=== PATIENT | male | born 1950 | race Caucasian/White ===

== ENCOUNTER 2017-08-24 05:28 | Day surgery (SDC) | payer OTHER, MEDICARE ==
[~2017-08-24] VITALS: Ht 188 cm; Wt 129.7 kg
--- NOTE | ~2017-08-24 | O ---
[facility] [place] [address] OPERATIVE REPORT Name: JONYPEDROLACEYCOLTON COLVIN Room #: DEP [facility] [place] M..#: [id number] Admission: 08/24/17 Attend Phys: Annamarie Aguirre, Discharge: 08/24/17 Date of : 52 Report #: [id number] THIS REPORT FOR: //name// CC: Annamarie Campos DATE OF SERVICE: 08/24/2017 PREOPERATIVE DIAGNOSIS: Right carpal tunnel syndrome. POSTOPERATIVE DIAGNOSIS: Right carpal tunnel syndrome. PROCEDURE PERFORMED: Right open carpal tunnel release. SURGEON: Annamarie Aguirre M.D. ANESTHESIA: Local MAC anesthesia. ESTIMATED BLOOD LOSS: Minimal. TOURNIQUET TIME: 13 minutes. COMPLICATIONS: None. CONDITION: Stable. DISPOSITION: Recovery room. INDICATIONS: The patient is a 67-year-old male with the above-mentioned diagnosis. He elects for operative treatment. The risks, benefits, alternatives, complications were discussed and included but were not limited to infection, damage to vessels or nerves, incomplete relief of his symptoms. Informed consent was obtained. The correct extremity was identified and labeled by myself after verbal confirmation of patient as well as visual confirmation and signed informed consent. DESCRIPTION OF PROCEDURE: The patient brought to the operating room and placed on the operating table in supine position. He received preoperative antibiotics. Tourniquet was placed over padding. The patient's right upper extremity was sterilely prepped and draped in the usual fashion. A final timeout was taken to verify correct patient, operative procedure, operative site, all concurred. After adequate sedation was achieved, a total of approximately 6 mL of a mixed 0.25% Marcaine, 1% lidocaine was injected into the subcutaneous tissue at the proposed incision sites. The entire procedures were done with the aid of 3.5 times loupe magnification. After adequate anesthesia was obtained, the arm was elevated, exsanguinated and tourniquet inflated. [address] [address] OPERATIVE REPORT Name: COLTON VILLANUEVA Room #: DEP [facility]..#: [id number] Admission: 08/24/17 Attend Phys: Annamarie Aguirre, Discharge: 08/24/17 Date of : 52 Report #: [id number] Next, a 2.5 cm was made over the carpal tunnel in line with the ring and long finger web space. Dissection was tissue with tenotomy scissors in the mid portion of the incision, a 15 blade was utilized to incise the transverse carpal ligament and the mid portion and is very thick. The tenotomy scissors were used to transect the transverse carpal ligament proximally from the antebrachial fascia in the palm all the way to the fat in the palm. The incision was ulnar to the course of median nerve to decrease postoperative scarring. The nerve was evaluated and looked to be in good condition. The wound was thoroughly irrigated. Skin was closed with 4-0 nylon suture. Wound was dressed with Adaptic and sterile gauze. He was placed in a bulky mildly compressive dressing. All fingers were pink with brisk capillary refill of the case after deflation of the tourniquet. All sponge, needle counts were correct. The patient transferred to postoperative position in stable condition. <ELECTRONICALLY SIGNED> By: Annamarie Aguirre MD 09/07/17 1526 1729 1810 Annamarie Aguirre MD /nt
[~2017-08-24 05:28] MED LIST: ADVAIR HFA 45MC1 AER INH; ALLEGRA ALLERGY60 MG PO; AMLODIPINE-ATO1 EAC5 PO; ASPIR 8181 MG PO; BENICAR40 MG PO; CARDIZEM CD240 MG PO; CARDURA4 MG PO; CARVEDILOL25 MG PO; CELEBREX 200 M200 M1 PO; DEMADEX20 MG PO; EMLA CREAM5 GM TOP; FOSRENOL1000 MG PO; HYDROXYZINE HCL25 M1 PO; JANUVIA100 MG PO; JANUVIA25 MG PO; LANTUSSOLASTAR SUBQ; LIPITOR 20 MG T20 M1 PO; LOVENOX40 MG/0.4 SUBQ; METAXALONE800 MG PO; NABUMETONE 750750 M1 PO; NEURONTIN100 MG PO; PACERONE 200 M200 M1 PO; PERCOCET 10-321 EACH PO; RENAL CAPS SOFTG1 MG PO; SINGULAIR 10 MG10 M1 PO; SYMBICORT80 MCG/4.1 INH; TRAMADOL 50 MG50 MG PO; VASCEPA1 GM PO; XANAX1 MG PO; ZETIA10 MG PO
[2017-08-24 11:49] LABS: CALCIUM 8.6 mg/dL (8.5-10.1); CREATININE 6.4 mg/dL (0.7-1.3); POTASSIUM 4.9 mmol/L (3.5-5.1)
[2017-08-24 11:53] LABS: ALBUMIN 3.4 g/dL (3.4-5.0); TOTAL BILIRUBIN 0.5 mg/dL (<0.1-1.0); TOTAL PROTEIN 6.9 g/dL (6.4-8.2)
[2017-08-24 13:30] VITALS: BP 210/82
[2017-08-24 15:07] VITALS: BP 210/82
== END 2017-08-24 15:55 | disposition home or self-care (01) ==
LOC: TBA 05:28 → OR 05:28
PROVIDERS: Orthopaedic Surgery Hand Surgery
DX: G56.01 Carpal tunnel syndrome, right upper limb (principal); F41.9 Anxiety disorder, unspecified; I12.0 Hypertensive chronic kidney disease with stage 5 chronic kidney disease or end stage renal disease; E11.22 Type 2 diabetes mellitus with diabetic chronic kidney disease; N18.6 End stage renal disease; Z99.2 Dependence on renal dialysis; M19.90 Unspecified osteoarthritis, unspecified site; J45.909 Unspecified asthma, uncomplicated; E78.5 Hyperlipidemia, unspecified
CPT/HCPCS: 50010; 50101; 50386; 56526; 57006; 57091; 62110; 62850; 70005

== ENCOUNTER → 2019-08-20 | Outpatient (CLI) | payer OTHER, MEDICARE ==
[~2019-08-20] MED LIST changes: +BUPROPION XL300 MG PO; +CALCIUM CARBON500 MG PO; +INSULIN AS100 UNIT/3 SUBQ; +MYFORTIC360 MG PO; +NIFEDIPINE ER90 M1 PO; +NORVASC5 M1 PO; +PREDNISONE 5 MG5 M1 PO; +PROGRAF 1 MG1 MG PO; +PROTONIX40 M4 PO; +SPIRONOLACTONE25 MG PO; +TORSEMIDE20 MG PO; +TRESIBA FL100 UNIT/1 SUBQ
== END | disposition home or self-care (01) ==
LOC: SJCVCIMAG 11:34
DX: I11.9 Hypertensive heart disease without heart failure (principal); I25.10 Atherosclerotic heart disease of native coronary artery without angina pectoris; E11.9 Type 2 diabetes mellitus without complications; G47.33 Obstructive sleep apnea (adult) (pediatric); E78.5 Hyperlipidemia, unspecified; Z99.89 Dependence on other enabling machines and devices; Z79.4 Long term (current) use of insulin; Z94.0 Kidney transplant status

== ENCOUNTER → 2019-08-26 | Outpatient (CLI) | payer OTHER, MEDICARE ==
[~2019-08-26] VITALS: Ht 188 cm; Wt 139.0 kg
[2019-08-26 07:29] VITALS: BP 156/63
[2019-08-26 07:30] LABS: HEMATOCRIT 42.5 % (42.0-52.0); HEMOGLOBIN 13.6 gm/dL (14.0-18.0); MCH 30.1 pg (26.0-34.0); MCV 94.3 fL (80.0-100.0); RBC 4.51 mil/uL (4.50-6.00); RDW 15.3 % (10.5-14.5); WBC 8.5 thou/uL (4.0-11.0)
[2019-08-26 07:45] LABS: CALCIUM 9.9 mg/dL (8.5-10.1); CREATININE 1.5 mg/dL (0.7-1.3); POTASSIUM 4.7 mmol/L (3.5-5.1)
--- NOTE | 2019-08-26 12:19 | NUR ---
LUNCH TRAY TO PT. CARDENE DRIP TURNED OFF.
== END | disposition home or self-care (01) ==
LOC: CATH 06:42
PROVIDERS: Nuclear Medicine Nuclear Cardiology
DX: I70.1 Atherosclerosis of renal artery (principal); T82.856A Stenosis of peripheral vascular stent, initial encounter; I15.0 Renovascular hypertension; I73.9 Peripheral vascular disease, unspecified; I10 Essential (primary) hypertension; G47.30 Sleep apnea, unspecified; M19.90 Unspecified osteoarthritis, unspecified site; E78.5 Hyperlipidemia, unspecified; F41.9 Anxiety disorder, unspecified; K21.9 Gastro-esophageal reflux disease without esophagitis; Z98.890 Other specified postprocedural states; Z96.652 Presence of left artificial knee joint; Z94.0 Kidney transplant status; Z79.899 Other long term (current) drug therapy

== ENCOUNTER → 2019-11-27 | Outpatient (CLI) | payer OTHER, MEDICARE | LOC: SJCVCIMAG 09:30 | DX: I25.10 Atherosclerotic heart disease of native coronary artery without angina pectoris (principal); E11.22 Type 2 diabetes mellitus with diabetic chronic kidney disease; I12.0 Hypertensive chronic kidney disease with stage 5 chronic kidney disease or end stage renal disease; N18.6 End stage renal disease; E78.5 Hyperlipidemia, unspecified; G47.33 Obstructive sleep apnea (adult) (pediatric); I70.1 Atherosclerosis of renal artery; Z79.4 Long term (current) use of insulin; Z94.0 Kidney transplant status; Z99.89 Dependence on other enabling machines and devices; Z99.2 Dependence on renal dialysis; Z79.899 Other long term (current) drug therapy ==

== ENCOUNTER → 2020-05-29 | Outpatient (CLI) | payer OTHER, MEDICARE | LOC: SJCVCIMAG 07:47 | PROVIDERS: ATTEND Internal Medicine Cardiovascular Disease | DX: I25.10 Atherosclerotic heart disease of native coronary artery without angina pectoris (principal); I49.3 Ventricular premature depolarization; G47.33 Obstructive sleep apnea (adult) (pediatric); Z94.0 Kidney transplant status; Z79.899 Other long term (current) drug therapy ==

== ENCOUNTER → 2020-11-17 | Outpatient (CLI) | payer OTHER, MEDICARE | LOC: SJCVCIMAG 08:34 | PROVIDERS: ATTEND Internal Medicine Cardiovascular Disease | DX: R94.31 Abnormal electrocardiogram [ECG] [EKG] (principal); T82.856A Stenosis of peripheral vascular stent, initial encounter; I70.1 Atherosclerosis of renal artery; N28.89 Other specified disorders of kidney and ureter; I25.10 Atherosclerotic heart disease of native coronary artery without angina pectoris; E78.00 Pure hypercholesterolemia, unspecified; E11.22 Type 2 diabetes mellitus with diabetic chronic kidney disease; I12.9 Hypertensive chronic kidney disease with stage 1 through stage 4 chronic kidney disease, or unspecified chronic kidney disease; N18.9 Chronic kidney disease, unspecified; J44.9 Chronic obstructive pulmonary disease, unspecified; G47.33 Obstructive sleep apnea (adult) (pediatric); Z94.0 Kidney transplant status; Z98.890 Other specified postprocedural states; Z88.8 Allergy status to other drugs, medicaments and biological substances; Z79.82 Long term (current) use of aspirin; Z79.4 Long term (current) use of insulin; Z79.899 Other long term (current) drug therapy; Z99.89 Dependence on other enabling machines and devices; Z82.49 Family history of ischemic heart disease and other diseases of the circulatory system; Y83.8 Other surgical procedures as the cause of abnormal reaction of the patient, or of later complication, without mention of misadventure at the time of the procedure; Y92.89 Other specified places as the place of occurrence of the external cause ==

== ENCOUNTER → 2021-06-22 | Outpatient (CLI) | payer OTHER, MEDICARE | LOC: SJCVCIMAG 08:01 | PROVIDERS: ATTEND Internal Medicine Cardiovascular Disease | DX: I65.23 Occlusion and stenosis of bilateral carotid arteries (principal); R94.31 Abnormal electrocardiogram [ECG] [EKG]; I25.10 Atherosclerotic heart disease of native coronary artery without angina pectoris; E11.22 Type 2 diabetes mellitus with diabetic chronic kidney disease; I12.9 Hypertensive chronic kidney disease with stage 1 through stage 4 chronic kidney disease, or unspecified chronic kidney disease; N18.9 Chronic kidney disease, unspecified; I70.1 Atherosclerosis of renal artery; E78.00 Pure hypercholesterolemia, unspecified; J45.909 Unspecified asthma, uncomplicated; J44.9 Chronic obstructive pulmonary disease, unspecified; F41.9 Anxiety disorder, unspecified; Z79.4 Long term (current) use of insulin; Z79.82 Long term (current) use of aspirin; Z79.899 Other long term (current) drug therapy; Z72.89 Other problems related to lifestyle; Z88.8 Allergy status to other drugs, medicaments and biological substances ==